=== PATIENT | male | born 1940 | race Caucasian/White ===

== ENCOUNTER → 2016-09-15 | Outpatient (CLI) | payer MEDICARE, BC ==
--- NOTE | 2016-09-15 09:39 | US ---
EXAMINATION TYPE: US renals and bladder DATE OF EXAM: 09/15/2016 9:05 AM COMPARISON: See PACS CLINICAL HISTORY: R31.0 gross hematuria. EXAM MEASUREMENTS: Right Kidney: 10.0 x 4.1 x 4.4 cm Left Kidney: 9.7 x 4.3 x 4.3 cm Right Kidney: wnl Left Kidney: Extensive overlying bowel gas on left, left kidney not seen in its entirety Bladder:solid appearing area in lower bladder measuring 3.4 x 1.9 x 3.7, this area does not appear va scular, bladder wall appears thickened at 1cm Bilateral Jets visualized, they do appear to be sitting on a thickened wall area There is a bladder wall mass and thickening of the bladder. There is a small, 8.3 mm hypoechoic lesio n within the upper pole of the right kidney that does not meet the requirements of a simple cyst. IMPRESSION: 2. A 0.3 MM HYPOECHOIC LESION WITHIN THE UPPER POLE OF THE RIGHT KIDNEY DOES NOT MEET THE REQUIREMENT S OF A SIMPLE CYST.1. THICKENED BLADDER WALL AND BLADDER WALL MASS. DIRECT VISUALIZATION IS SUGGESTED .
== END | disposition home or self-care (01) ==
LOC: RADUSMAIN 08:09
PROVIDERS: ATTEND Physician Assistant
DX: N28.89 Other specified disorders of kidney and ureter (principal); N32.89 Other specified disorders of bladder; R31.0 Gross hematuria
CPT/HCPCS: 76770

== ENCOUNTER 2020-09-11 06:14 | Day surgery (SDC) | payer MEDICARE, BC ==
[2020-09-10 09:00] VITALS: BMI 25.0
[2020-09-11] MEDS ORDERED: NITROGLYCERIN SL TABS 0.4 MG TAB SUBLINGUAL PRN (06:33)
[2020-09-11] MEDS ORDERED: SODIUM CHLORIDE 0.9% 1,000 ML in EMPTY BAG 1 BAG IV ONE (06:33)
[2020-09-11] MEDS ORDERED: ALPRAZolam 0.25 MG TAB PO PRN (06:33)
[2020-09-11] MEDS ORDERED: ASPIRIN 325 MG TAB PO STA (06:33)
[2020-09-11] MEDS ORDERED: HEPARIN SODIUM,PORCINE 10,000 UNIT in SODIUM CHLORIDE 0.9% 1,000 ML IRRIGATION PRN (06:33)
[2020-09-11] MEDS ORDERED: ALPRAZolam 0.5 MG TAB PO PRN (06:33)
[2020-09-11] MEDS ORDERED: HEPARIN SODIUM,PORCINE 2,500 UNIT in SODIUM CHLORIDE 0.9% 250 ML IRRIGATION PRN (06:33)
[2020-09-11] MEDS ORDERED: SODIUM CHLORIDE 0.9% 1,000 ML IV ONE (06:45)
[2020-09-11] MEDS ORDERED: VERAPAMIL 2.5 MG/ML 2 ML AMP ONE (07:11)
[2020-09-11] MEDS ORDERED: LIDOCAINE 1% INJ 10MG/ML (20 ML MDV) ONE (07:11)
[2020-09-11 07:12] VITALS: RESP 16; TEMP 97.6
[2020-09-11 07:14] LABS: Glucose,Whole Blood 133 mg/dL (75-99)
[2020-09-11 07:26] LABS: Calcium 9.8 mg/dL (8.4-10.2); Potassium 4.2 mmol/L (3.5-5.1)
[2020-09-11] MEDS ORDERED: fentaNYL (PF) 50 MCG/ML 2 ML AMP ONE (07:26)
[2020-09-11] MEDS ORDERED: HEPARIN SODIUM 1,000 UN/ML (10ML VL) ONE (07:26)
[2020-09-11] MEDS ORDERED: fentaNYL (PF) 50 MCG/ML 2 ML AMP IV ONE (07:33)
[2020-09-11] MEDS: LIDOCAINE 1% INJ 10MG/ML (20 ML MDV) SQ ONE ×2 (07:38→07:53)
[2020-09-11] MEDS: VERAPAMIL SYRINGE (5 MG/10 ML) INTRAARTER ONE ×2 (07:39→07:47)
[2020-09-11 07:41] LABS: Basophils # (A) 0.1 k/uL (0-0.2); Basophils % (A) 0 %; Eosinophils # (A) 0.1 k/uL (0-0.7); Eosinophils % (A) 1 %; HCT 51.4 % (39.0-53.0); HGB 17.2 gm/dL (13.0-17.5); Lymphocytes # (A) 1.4 k/uL (1.0-4.8); Lymphocytes % (A) 11 %; MCH 30.4 pg (25.0-35.0); MCHC 33.4 g/dL (31.0-37.0); MCV 91.1 fL (80.0-100.0); Mean Platelet Volume 8.5; Monocytes # (A) 0.7 k/uL (0-1.0); Monocytes % (A) 5 %; Neutrophils # (A) 10.7 k/uL (1.3-7.7); Neutrophils % (A) 82 %; Platelet Count 165 k/uL (150-450); RBC 5.64 m/uL (4.30-5.90); RDW 12.9 % (11.5-15.5); WBC 13.1 k/uL (3.8-10.6)
[2020-09-11] MEDS: MIDAZOLAM 2 MG/2 ML VIAL IVP ONE ×2 (07:45→07:49)
[2020-09-11] MEDS ORDERED: IOPAMIDOL-370 50ML BTL INJ ONE (08:09)
[2020-09-11] MEDS ORDERED: IOPAMIDOL-370 125ML BTL INJ ONE (08:09)
[2020-09-11] MEDS ORDERED: RX INFO: IV CONTRAST WAS GIVEN 1 EACH MISC MISCELLANE PRN (08:29)
[2020-09-11] MEDS ORDERED: SODIUM CHLORIDE 0.9% 1,000 ML IV SCH (08:30)
[2020-09-11] MEDS ORDERED: ATORVASTATIN 20 MG TAB PO SCH (09:00)
[2020-09-11] MEDS ORDERED: lisinopriL 10 MG TAB PO SCH (09:00)
[2020-09-11] MEDS ORDERED: METOPROLOL TARTRATE 25 MG TAB PO SCH (09:00)
[2020-09-11] MEDS ORDERED: amLODIPine 10 MG TAB PO SCH (09:00)
--- NOTE | 2020-09-11 09:01 | CC ---
CARDIAC CATHETERIZATION REPORT Mr. Cazares is an 79-year-old male with a known history of hypertension, hyperlipidemia, diabetes mellitus as well as aortic regurgitation, who recently underwent a myocardial perfusion imaging that revealed evidence of inferior and inferolateral wall partially reversible defect. In view of that, recommendations were made regarding cardiac catheterization. The procedure as well as the risks and the complications were discussed with the patient who is in full understanding and agreement. PROCEDURE: Patient was brought to [facility] in a fasting semi-sedated state after receiving fentanyl and Benadryl and achieving moderate conscious sedated state. Using Xylocaine anesthesia and Seldinger technique, a 6-Peruvian sheath was introduced in the right radial artery. Multiple attempts to advanced a wire into the ascending aorta were unsuccessful because of severe vasospasm. At that time, the wire was removed and using Xylocaine anesthesia and Seldinger technique, a 6-Peruvian sheath was introduced in the right femoral artery. Selective right and left coronary angiography performed using 5- Peruvian 4 bend right Senthil and 6-Peruvian 5 bend left Senthil catheter. Multiple views of the coronary artery including hemiaxial views were obtained. Following that, a 6- Peruvian tight pigtail catheter was introduced in the left ventricle and left ventricular end-diastolic pressure was calculated. Following that, a LUXEMBOURGER ascending aortogram was performed. Subsequently, the catheter and sheath were removed. Hemostasis was obtained with deployment of a TR band on the right radial as well as Angio-Seal in the right femoral artery. There was no immediate complication. Patient was returned to his room in stable condition. FINDINGS: LEFT MAIN: This is a short size vessel, bifurcating into left circumflex, left anterior descending artery. Left main coronary artery has no evidence of high-grade stenosis. LEFT ANTERIOR DESCENDING ARTERY: This is a large-size vessel reaching toward the apex with a wraparound apex segment giving rise to one diagonal branch of moderate to large caliber. The left anterior descending artery as well as branches have no evidence of obstructive coronary artery disease. LEFT CIRCUMFLEX: This is a nondominant large vessel giving rise to a large first obtuse marginal branch that has 3 different branches. The left circumflex as well as branches have no evidence of obstructive coronary artery disease. RIGHT CORONARY ARTERY: This is a large dominant vessel bifurcating distally PDA and posterolateral segment and branches. The right coronary artery and its branches have no evidence of obstructive coronary artery disease. LEFT VENTRICULOGRAM: The left ventriculogram was not performed. AORTOGRAM: Aortogram was performed in the LUXEMBOURGER view and revealed the 3 to 4+ aortic regurgitation with dilatation of the ascending aorta measuring 4.9 cm. HEMODYNAMICS: There was no gradient across the aortic valve. The left ventricular end-diastolic pressure was 8-10 mmHg. CONCLUSION: 1. Normal coronary arteries. 2. Dilated ascending aorta with a 3 to 4+ aortic regurgitation. RECOMMENDATION: In view of finding anatomy, I recommend continue medical therapy and close followup of his aortic size to decide about proceeding with surgical repair. Those findings and recommendation were discussed with the patient and his family and they are in full understanding and agreement. Duration of procedure is 38 minutes. MMODL / IJN: [id number] /
--- NOTE | 2020-09-11 09:04 | LTR ---
September 11, 2020 Re: Aries [place] Dear Dr. Moe: I had the opportunity to perform cardiac catheterization on Mr. Cazares at [facility] on the 11 of September and a full copy of the procedure note will be forwarded to you. In brief, he was found to have no evidence of obstructive coronary artery disease with evidence of ascending aortic aneurysm and severe aortic regurgitation. Based on those findings, I will continue medical therapy and follow his aortic size closely to make further recommendation regarding surgical repair. I will keep you updated in his progress and thank you again for allowing me the opportunity to participate in his care. Please feel free to call for any questions. Sincerely yours, MD GEOVANNA Pino / [place]: [id number] /
[2020-09-11 10:20] VITALS: PULSE 60
[2020-09-11 12:51] VITALS: BP 119/72
[2020-09-12] MEDS ORDERED: ASPIRIN 81 MG PO SCH (09:00)
== END 2020-09-11 13:28 | disposition home or self-care (01) ==
LOC: CATHCVL 06:14
PROVIDERS: ATTEND Internal Medicine Interventional Cardiology
DX: I35.1 Nonrheumatic aortic (valve) insufficiency (principal); I71.4 Abdominal aortic aneurysm, without rupture; I77.89 Other specified disorders of arteries and arterioles; R94.39 Abnormal result of other cardiovascular function study; I10 Essential (primary) hypertension; E11.9 Type 2 diabetes mellitus without complications; R09.89 Other specified symptoms and signs involving the circulatory and respiratory systems; E78.2 Mixed hyperlipidemia; Z79.82 Long term (current) use of aspirin; Z79.899 Other long term (current) drug therapy; Z79.84 Long term (current) use of oral hypoglycemic drugs
CPT/HCPCS: 93458; 93567; 80048; 85025; C1760; C1769 ×2; C1894; J2250; J2001; J3010; Q9967 ×2

== ENCOUNTER → 2020-09-24 | Outpatient (CLI) | payer MEDICARE, BC ==
--- NOTE | 2020-09-24 16:09 | CT ---
EXAMINATION TYPE: CT angio chest DATE OF EXAM: 09/24/2020 COMPARISON: None HISTORY: 79-year-old male I71.2, Thoracic aortic aneurysm, without rupture TECHNIQUE: Contiguous axial scanning of the chest performed with IV Contrast, patient injected with 8 0 mL of Isovue 370. Initial noncontrast images through the aortic arch. Coronal/sagittal MIP reconstr uctions performed. 3-D reconstructions generated on a dedicated workstation. CT DLP: 359.4 mGycm Automated exposure control for dose reduction was used. FINDINGS: Heart normal size without pericardial effusion. Scattered LAD and circumflex coronary artery calcific ations are present. Aortic root is aneurysmal at 5.4 cm. Ascending aorta aneurysm 5.3 cm. Proximal arch aneurysmal at 4.8 cm. Conventional branching anatomy. Mild atherosclerotic calcifications within the arch. Ectatic upper descending thoracic aorta 3.5 cm. Borderline ectatic 3.0 cm mid descending thoracic aorta. Ectatic lower descending thoracic aorta 2.8 cm. Noncontrast images show no evidence for acute intramural hematoma. Enlarged caliber to the main right and left pulmonary arteries at 3.1 and 2.8 cm, respectively, sugge sting underlying pulmonary hypertension. No thoracic lymphadenopathy. 3 mm peripheral right midlung pulmonary nodule, axial image 28. Larger 1 cm right middle lobe pulmonary nodule, axial image 35. 3 mm anterior right middle lobe pulmonary nodule, axial image 39. 3 mm posterior left lower lobe pulmonary nodule, axial image 38. A few scattered benign calcified granulomas are noted particularly in the right lower lung. No consolidation or pleural effusion. Moderate fold thickening within the visualized gastric body, axial image 57, could be due to nondiste ntion. Correlate for possible gastritis or any symptoms that would warrant direct visualization to ex clude underlying neoplasm. Bones: Moderate multilevel degenerative disc disease mid to lower thoracic spine. IMPRESSION: 1. ANEURYSMAL THORACIC AORTA (ROOT 5.4 CM, ASCENDING 5.3 CM, PROXIMAL ARCH 4.8 CM, UPPER DESCENDING 3 .5 CM). 2. FINDINGS SUGGEST UNDERLYING PULMONARY ARTERIAL HYPERTENSION. 3. SCATTERED PULMONARY NODULES, LARGEST IN THE RIGHT MIDDLE LOBE MEASURES 1 CM. THREE-MONTH FOLLOW-UP CT RECOMMENDED TO EXCLUDE EARLY NEOPLASM. 4. MODERATE FOLD THICKENING IN THE VISUALIZED GASTRIC BODY. THIS APPEARANCE COULD BE FROM UNDERDISTE NTION OR GASTRITIS. CORRELATE FOR ANY SYMPTOMS THAT WOULD WARRANT DIRECT VISUALIZATION TO EXCLUDE CLEM PLASM.
== END | disposition home or self-care (01) ==
LOC: RADCTMAIN 13:41
PROVIDERS: ATTEND Internal Medicine Interventional Cardiology
DX: R91.8 Other nonspecific abnormal finding of lung field (principal); I71.2 Thoracic aortic aneurysm, without rupture
CPT/HCPCS: 82565; 84520; 71275; 36415; Q9967

== ENCOUNTER → 2021-03-31 | Outpatient (CLI) | payer MEDICARE, BC ==
--- NOTE | 2021-04-01 11:50 | CT ---
CT CHEST FOR PULMONARY EMBOLISM. EXAMINATION TYPE: CT angio chest DATE OF EXAM: 03/31/2021 INDICATION: Thoracic aortic aneurysm w/out rupture. Pt not reporting any issues CT DLP: 566.80 mGycm, Automated exposure control for dose reduction was used. CONTRAST: Patient injected with 80 mL of Isovue 370. COMPARISON: TECHNIQUE: CT of the chest is performed on a spiral scan at 2 mm thick sections. Study is performed with intravenous contrast timed for evaluation for the aorta. This will limit additional portions of the evaluation. 3-D MIP images reconstructed by the technologist are reviewed on the computer in th e coronal and sagittal planes. FINDINGS: No dissection is evident. No mediastinal or hilar adenopathy enlarged by CT criteria is evident. The ascending aorta diameter at the level of the main pulmonary artery is 5.3 cm. The main pulmonary artery diameter at the bifur cation is 2.7 cm. The aortic root measures 5.4 cm. The descending thoracic aorta at the level of the main pulmonary art lucy is 5.3 cm which is stable from comparison. The aortic arch has a transverse dimension of 3.1 cm. Distal thoracic aorta above the diaphragm measures 2.9 cm. There is a calcified granuloma within the periphery of the right mid lung, series 5 image 270. Additi onal calcification within the right middle lobe, series 5 image 34. There is a tiny peripheral nodule in the left lower lobe with a 0.2 cm. Series [address] section through the upper abdomen are unremarkable. IMPRESSIONS: 1. Ascending thoracic aortic aneurysm, stable from 09/24/2020. 2. Calcified granuloma within the right lung discussed above. Tiny nodular density may be within the periphery of the left lung may been present previously.
== END | disposition home or self-care (01) ==
LOC: RADCTMAIN 15:48
PROVIDERS: ATTEND Surgery
DX: I71.2 Thoracic aortic aneurysm, without rupture (principal); J84.10 Pulmonary fibrosis, unspecified
CPT/HCPCS: 82565; 84520; 71275; 36415; Q9967

== ENCOUNTER → 2022-04-06 | Outpatient (CLI) | payer MEDICARE, BC | END | disposition home or self-care (01) | LOC: RADCTMAIN 14:00 | PROVIDERS: ATTEND Surgery | DX: I71.20 Thoracic aortic aneurysm, without rupture, unspecified (principal) | CPT/HCPCS: 82565; 84520 ==

== ENCOUNTER → 2022-10-31 | Outpatient (CLI) | payer MEDICARE, BC ==
--- NOTE | 2022-10-31 12:01 | CT ---
EXAMINATION TYPE: CT chest wo con DATE OF EXAM: 10/31/2022 COMPARISON: 04/21/2022 HISTORY: thoracic aneurysm CT DLP: 444 mGycm. Automated Exposure Control for Dose Reduction was Utilized. TECHNIQUE: CT scan of the thorax is performed without IV contrast. FINDINGS: LUNGS: The lungs are grossly clear, there is no concerning parenchymal consolidative pneumonia multip le calcified pulmonary nodules again seen compatible with chronic granulomatous benign disease. There is a 2 mm subpleural nodule axial image 14. There are additional sub-5 mm noncalcified nodules in th e superior segment left lower lobe and within the left upper lobe. Right upper lobe interlobular septal thickening at the lung bases suggestive of chronic interstitial pulmonary fibrosis. Subsegmental changes at the right lung base are noted. There is atherosclerotic change aorta and there is an aneurysm involving the ascending aorta measurin g 5.4 x 5.6 cm standing from the aortic root to the aortic arch There is dense coronary artery calcification and cardiomegaly. Structures of the upper abdomen demonstrate punctate nonobstructing right renal calculus partially in cluded in the field of view measuring 5 mm. Calcification near the pancreatic bed noted. Stomach is d ecompressed. Bowel gas pattern nonspecific. There is hypertrophic and degenerative changes in the spi ne. Small hiatal hernia is seen. Assessment for adenopathy limited by noncontrast technique. No pathologic adenopathy identified. Iden tified. There is no pleural effusion or pneumothorax seen. The tracheobronchial tree is patent. IMPRESSION: 1. There is a 5.4 x 5.7 cm ascending thoracic aortic aneurysm extending from the aortic root to the a ortic arch. 2. Dense coronary artery calcification. 3. Multiple calcified and noncalcified nodules similar to prior exam and a benign appearance. Annual 12 month follow-up be obtained to confirm stability. 4. Nonobstructing right renal calculus. 5. Nonspecific calcifications near the pancreatic head. Possibly related to chronic pancreatitis. Man enrique stone is in the differential diagnosis. Correlate with ultrasound.
== END | disposition home or self-care (01) ==
LOC: RADCTMAIN 10:57
PROVIDERS: ATTEND Surgery
DX: I71.20 Thoracic aortic aneurysm, without rupture, unspecified (principal); I25.10 Atherosclerotic heart disease of native coronary artery without angina pectoris; R91.8 Other nonspecific abnormal finding of lung field; N20.0 Calculus of kidney
CPT/HCPCS: 71250

== ENCOUNTER → 2023-04-24 | Outpatient (CLI) | payer MEDICARE, BC ==
--- NOTE | 2023-04-24 13:36 | CT ---
EXAMINATION TYPE: CT chest wo con CT DLP: 449 mGycm, Automated exposure control for dose reduction was used. DATE OF EXAM: 04/24/2023 12:54 PM COMPARISON: 10/31/2022 and dating back to 09/24/2020. CLINICAL INDICATION:Male, 82 years old with history of I71.20 thoracic aneurysm; [facility], THORACIC ANEURY SM TECHNIQUE: Multiple axial images were obtained through the chest. Sagittal and coronal reformats were created for review. Contrast used: mL of (None if empty) Oral contrast used: (None if empty) FINDINGS: LUNGS/ PLEURA: No focal consolidation, pneumothorax or pleural effusion. Left anterior upper lobe anand cified neuroma. No new or enlarging pulmonary nodules. AIRWAY: Patent and unremarkable. HEART: There is mildly enlarged for size with coronary artery atherosclerosis. MEDIASTINUM: No gross evidence of adenopathy. VASCULATURE: Ascending aortic aneurysm measuring up to to 5.4 x 5.4 cm not significantly changed from prior. MUSCULOSKELETAL: Moderate disc degeneration changes are present throughout the thoracolumbar spine. SOFT TISSUES/LYMPH NODES: Unremarkable. LOWER NECK: No significant findings. UPPER ABDOMEN: Few scattered desiccation seen in the pancreatic parenchyma. These are felt to be outs steven the hepatic duct or main common bile duct. IMPRESSION: 1. Ascending thoracic aorta aneurysm measuring up to 5.4 cm not significantly changed dating back to 09/24/2020. 2. Sequela of granulomatous disease with scattered calcified granulomas throughout the lungs. 3. Moderate coronary artery atherosclerosis. 4. Mild cardiomegaly.
== END | disposition home or self-care (01) ==
LOC: RADCTMAIN 12:35
PROVIDERS: ATTEND Thoracic Surgery (Cardiothoracic Vascular Surgery)
DX: I71.21 Aneurysm of the ascending aorta, without rupture (principal); I25.10 Atherosclerotic heart disease of native coronary artery without angina pectoris; I51.7 Cardiomegaly; L92.9 Granulomatous disorder of the skin and subcutaneous tissue, unspecified
CPT/HCPCS: 71250

== ENCOUNTER 2023-10-26 10:19 | Emergency (ER) | payer MEDICARE, BC ==
[2023-10-26 10:41] VITALS: PULSE 77
--- NOTE | 2023-10-26 11:22 | ED ---
General Adult HPI - General Chief complaint: Fall Stated complaint: Fall/R Side Pain Time Seen by Provider: 10/26/23 10:26 Source: patient Mode of arrival: ambulatory Limitations: no limitations - History of Present Illness Initial comments: 83-year-old male presents to the emergency department for evaluation of right sided rib pain. Patient states that he took a fall yesterday when he was walking in the dark. He notes that he hit the right side of his chest wall on the table. He reports the pain is worse with laying down and inspiration. He denies any other injury. Denies head injury, loss of consciousness, blood thinners. - Related Data Home Medications Medication Instructions Recorded Confirmed Aspirin [Adult Low Dose Aspirin EC] 81 mg PO DAILY 07/28/15 10/26/23 Simvastatin 40 mg PO HS 07/28/15 10/26/23 lisinopriL [Zestril] 10 mg PO DAILY 07/28/15 10/26/23 amLODIPine [Norvasc] 10 mg PO DAILY 09/10/20 10/26/23 Dapagliflozin Propanediol [Farxiga] 10 mg PO DAILY 10/26/23 10/26/23 Empagliflozin [Jardiance] 25 mg PO DAILY 10/26/23 10/26/23 Repaglinide [Prandin] 1 mg PO AC-BID 10/26/23 10/26/23 Allergies Allergy/AdvReac Type Severity Reaction Status Date / Time No Known Allergies Allergy Verified 10/26/23 11:12 Review of Systems ROS Statement: Those systems with pertinent positive or pertinent negative responses have been documented in the HPI. ROS Other: All systems not noted in ROS Statement are negative. Past Medical History Past Medical History: Cancer, Diabetes Mellitus, Hyperlipidemia, Hypertension Additional Past Medical History / Comment(s): heart murmur, prostate CA, radiation 2012 History of Any Multi-Drug Resistant Organisms: None Reported Past Surgical History: Orthopedic Surgery Additional Past Surgical History / Comment(s): colonoscopy, knee sx as teen, elvis cataract Past Anesthesia/Blood Transfusion Reactions: No Reported Reaction Past Psychological History: No Psychological Hx Reported Smoking Status: Never smoker Past Alcohol Use History: None Reported Past Drug Use History: None Reported General Exam Limitations: no limitations General appearance: alert, in no apparent distress Head exam: Present: atraumatic, normocephalic, normal inspection Eye exam: Present: normal appearance, PERRL, EOMI. Absent: scleral icterus, conjunctival injection, periorbital swelling ENT exam: Present: normal exam, mucous membranes moist Neck exam: Present: normal inspection. Absent: tenderness, meningismus, lymphadenopathy Respiratory exam: Present: normal lung sounds bilaterally, chest wall tenderness. Absent: respiratory distress, wheezes, rales, rhonchi, stridor Cardiovascular Exam: Present: regular rate, normal rhythm, normal heart sounds. Absent: systolic murmur, diastolic murmur, rubs, gallop, clicks GI/Abdominal exam: Present: soft, normal bowel sounds. Absent: distended, tenderness, guarding, rebound, rigid Extremities exam: Present: normal inspection, full ROM, normal capillary refill. Absent: tenderness, pedal edema, joint swelling, calf tenderness Back exam: Present: normal inspection Neurological exam: Present: alert, oriented X3, CN II-XII intact Psychiatric exam: Present: normal affect, normal mood Skin exam: Present: warm, dry, intact, normal color. Absent: rash Course Vital Signs 10/26/23 10/26/23 10:22 12:58 Temperature 98 F 97.7 F Pulse Rate 77 77 Respiratory 16 18 Rate Blood Pressure 142/79 130/97 O2 Sat by Pulse 96 94 L Oximetry Medical Decision Making - Medical Decision Making Was pt. sent in by a medical professional or institution (DUNG Ann, FORMING YARDAGE CONTROL OPERATOR, urgent care, hospital, or skilled nursing...) When possible be specific @ -No Did you speak to anyone other than the patient for history (EMS, parent, family, police, friend...)? What history was obtained from this source @ -No Did you review nursing and triage notes (agree or disagree)? Why? @ -I reviewed and agree with nursing and triage notes Were old charts reviewed (outside hosp., previous admission, EMS record, old EKG, old radiological studies, urgent care reports/EKG's, skilled nursing records)? Report findings @ -No old charts were reviewed Differential Diagnosis (chest pain, altered mental status, abdominal pain women, abdominal pain men, vaginal bleeding, weakness, fever, dyspnea, syncope, head ache, dizziness, GI bleed, back pain, seizure, CVA, palpatations, mental health, musculoskeletal)? @ -Differential Musculoskeletal Muscular strain, contusion, ligament sprain, fracture, arthritis, septic arthritis, bursitis, cellulitis, muscle spasm, nerve compression, DVT, arterial occlusion, herpes zoster, electrolyte abnormality, tumor.... This is not meant to be in all inclusive list EKG interpreted by me (3pts min.). @ -None X-rays interpreted by me (1pt min.). @ -X-ray of the right-sided ribs shows no evidence of acute fracture CT interpreted by me (1pt min.). @ -CT of the chest shows no evidence of acute rib fracture U/S interpreted by me (1pt. min.). @ -None done What testing was considered but not performed or refused? (CT, X-rays, U/S, labs)? Why? @ -None What meds were considered but not given or refused? Why? @ -None Did you discuss the management of the patient with other professionals (professionals i.e. , PA, FORMING YARDAGE CONTROL OPERATOR, lab, RT, psych nurse, child protective services social worker, research chef, te acher, protective services officer, case reviewer)? Give summary @ -No Was smoking cessation discussed for >3mins.? @ -No Was critical care preformed (if so, how long)? @ -No Were there social determinants of health that impacted care today? How? (Homelessness, low income, unemployed, alcoholism, drug addiction, transportation, low edu. Level, literacy, decrease access to med. care, [facility], rehab)? @ -No Was there de-escalation of care discussed even if they declined (Discuss DNR or withdrawal of care, Hospice)? DNR status @ -No What co-morbidities impacted this encounter? (DM, HTN, Smoking, COPD, CAD, C ancer, CVA, ARF, Chemo, Hep., AIDS, mental health diagnosis, sleep apnea, morbid obesity)? @ -None Was patient admitted / discharged? Hospital course, mention meds given and route, prescriptions, significant lab abnormalities, going to OR and other pertinent info. @ -Discharge. Patient presented to the emergency department for evaluation of right-sided chest wall pain following a fall. He states that he hit his side on the table. Patient underwent x-rays which showed no evidence of acute fracture. Higher suspicion for rib fracture so patient underwent CT scan which showed no evidence of acute fracture. Patient provided an incentive spirometer for at home and advised on use. Discussed symptomatic treatment otherwise at this time. Patient understanding agreeable plan. Patient stable at time of discharge. Case discussed with Dr. Abernathy Undiagnosed new problem with uncertain prognosis? @ -No Drug Therapy requiring intensive monitoring for toxicity (Heparin, Nitro, Insulin, Cardizem)? @ -No Were any procedures done? @ -No Diagnosis/symptom? @ -Chest wall contusion Acute, or Chronic, or Acute on Chronic? @ -acute Uncomplicated (without systemic symptoms) or Complicated (systemic symptoms)? @ -uncomplicated Side effects of treatment? @ -No Exacerbation, Progression, or Severe Exacerbation? @ -No Poses a threat to life or bodily function? How? (Chest pain, [place], MA, pneumonia, PE, COPD, DKA, ARF, appy, cholecystitis, CVA, Diverticulitis, Homicidal, Suicidal, threat to staff... and all critical care pts) @ -No Disposition Clinical Impression: Fall, Chest wall contusion Disposition: HOME SELF-CARE Condition: Stable Instructions (If sedation given, give patient instructions): How to Use an Incentive Spirometer (ED), Fall Prevention (ED) Additional Instructions: Please utilize your incentive spirometer. Follow up with your primary care provider. Return to the emergency department for new or worsening symptoms. Is patient prescribed a controlled substance at d/c from ED?: No Referrals: Cony Moe MD [Primary Care Provider] - 1-2 days
--- NOTE | 2023-10-26 11:32 | XR ---
EXAMINATION TYPE: XR ribs RT w pa chest xray DATE OF EXAM: 10/26/2023 11:12 AM CLINICAL INDICATION:Male, 83 years old with history of fall; [facility] COMPARISON: None TECHNIQUE: XR ribs RT w pa chest xray; Frontal and oblique views of the ribs with frontal chest radio graph. FINDINGS: No definitive displaced acute rib fracture visualized. No evidence of fracture. Overall, th e lungs are clear. The cardiac silhouette is normal in size. The remaining osseous structures are i ntact. Moderate to severe multilevel degeneration changes of the spine. Moderate osteophyte formation of the right glenoid. IMPRESSION: No acute osseous pathology.
--- NOTE | 2023-10-26 12:52 | CT ---
EXAMINATION TYPE: CT chest wo con DATE OF EXAM: 10/26/2023 COMPARISON: 04/24/2023 HISTORY: right lower rib pain from fall CT DLP: 312.8 mGycm. Automated Exposure Control for Dose Reduction was Utilized. TECHNIQUE: CT scan of the thorax is performed without IV contrast. FINDINGS: There are 2 small stable right lung nodules. No new or suspicious lung nodule is seen. There is no abnormal airspace last consolidated density or abnormal interstitial density with the exc eption of some mild bandlike density in the right lung base posteriorly most likely reflecting mild a telectasis. There is no rib fracture. There is a stable sclerotic density in T11. There is a stable 5.4 cm aneurysm of the ascending thoracic aorta. There is no mediastinal, hilar or axillary adenopathy. There is no pleural effusion or pneumothorax. IMPRESSION: 1. No evidence of rib fracture. 2. Mild right lower lobe atelectasis. 3. Stable 5.4 cm aneurysmal dilatation of the ascending thoracic aorta. 4. Stable small right-sided pulmonary nodules. 5. Stable sclerotic density in T11.
[2023-10-26 13:39] VITALS: BP 130/97; RESP 18; TEMP 97.7
== END 2023-10-26 13:03 | disposition home or self-care (01) ==
LOC: EC 10:19
DX: S20.219A Contusion of unspecified front wall of thorax, initial encounter (principal); W22.03XA Walked into furniture, initial encounter
CPT/HCPCS: 71250; 99284

== ENCOUNTER → 2023-11-02 | Outpatient (CLI) | payer MEDICARE, BC ==
[2023-11-02 10:44] LABS: African American GFR (CKD) 50 (>60 ml/min/1.73 sqM); Blood Urea Nitrogen 31 mg/dL (9-20); Non-African American GFR(CKD) 43 (>60 ml/min/1.73 sqM)
--- NOTE | 2023-11-02 11:57 | CT ---
EXAMINATION TYPE: CT chest w con DATE OF EXAM: 11/02/2023 COMPARISON: 10/26/2023 HISTORY: thoracic aortic aneurysm w/o rupture CT DLP: 569 mGycm. Automated Exposure Control for Dose Reduction was Utilized. CONTRAST: CTA scan of the thorax is performed with IV Contrast, patient injected with 100 mL of Isovue 300, pul monary embolism protocol. MIP Images are created on CT scanner and reviewed. FINDINGS: LUNGS: Stable scattered calcified and noncalcified pulmonary nodules. Basilar atelectasis and small effusion. There is no pneumothorax seen. The tracheobronchial tree is patent. MEDIASTINUM: Ascending thoracic aorta is aneurysmal at 5.5 cm AP dimension versus prior measurement o f 5.4 cm. No complicating factors are seen. There are no greater than 1 cm hilar or mediastinal lymph nodes. No cardiomegaly or pericardial effusion is seen. OTHER: No additional significant abnormality is seen. IMPRESSION: 1. Ascending aortic aneurysm as noted. 2. Scattered calcified and noncalcified pulmonary nodules.
== END | disposition home or self-care (01) ==
LOC: RADCTMAIN 09:56
PROVIDERS: ATTEND Surgery
DX: I71.21 Aneurysm of the ascending aorta, without rupture (principal); R91.8 Other nonspecific abnormal finding of lung field
CPT/HCPCS: 82565; 84520; 71260; 36415; Q9967

== ENCOUNTER → 2024-05-22 | Outpatient (CLI) | payer MEDICARE, BC | END | disposition home or self-care (01) | LOC: LABWHC1 08:18 | PROVIDERS: ATTEND Urology | DX: C61 Malignant neoplasm of prostate (principal) | CPT/HCPCS: 36415; 84153 ==

== ENCOUNTER → 2024-10-22 | Outpatient (CLI) | payer MEDICARE, BC ==
--- NOTE | 2024-10-22 10:14 | CT ---
EXAMINATION TYPE: CT chest wo con DATE OF EXAM: 10/22/2024 8:57 AM COMPARISON: 11/02/2023 CLINICAL INDICATION: Male, 84 years old with history of I71.20 THORACIC AORTIC ANEURYSM, WITHOUT RUPT URE; PHH, Thoracic aortic aneurysm w/o rupture TECHNIQUE: CT of the chest without IV contrast. Coronal and sagittal reconstructions performed. Axial MIP reconstruction generated as well. CT DLP: 432 mGycm, Automated exposure control for dose reduction was used. FINDINGS: Heart normal size without pericardial effusion. Three-vessel coronary calcifications are present and are unremarkable for coronary artery disease. Mild aortic valve calcifications. Stable aneurysm aortic root at 5.5 cm. Aneurysm ascending aorta 5.7 cm versus 5.5 cm, previously. The proximal arch is aneurysmal at 5.1 cm, unchanged. Mild atherosclerotic arch calcifications with conventional arch vessel branching anatomy. Possible mo derate atherosclerotic narrowing at the origin of the right subclavian artery. Ectatic upper descending thoracic aorta at 3.4 cm. Tortuous descending thoracic aorta. Stable mild aneurysm of the aorta at the thoracoabdominal junction at 3.3 cm. Mildly enlarged caliber main right and left pulmonary arteries up to 2.9 cm suggesting underlying pul monary hypertension. A few scattered benign calcified granulomas in the lungs. Mild emphysematous change. A few scattered noncalcified nodules measuring up to 5 mm remain unchanged. Straightening atelectasis posterior right lung base. No consolidation or pleural effusion. Visualized upper abdomen shows similar pancreatic head calcifications, possible sequela of chronic pa ncreatitis. There is mild to moderate stool burden. 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 IMPRESSION: 1. Aneurysmal thoracic aorta (root stable at 5.5 cm and ascending portion minimally increased to 5.7 cm versus 5.5 cm, previously. Proximal arch 5.1 cm and at the thoracoabdominal junction 3.3 cm, both also stable). 2. Three-vessel coronary artery calcifications. COPD with mild emphysema, pulmonary arterial hyperten chani, and evidence of prior granulomatous disease. 3. Some of the small noncalcified nodules remain unchanged suggesting a benign etiology. [facility], , 10/22/2024 10:11 AM
== END | disposition home or self-care (01) ==
LOC: RADCTMAIN 08:20
PROVIDERS: ATTEND Surgery
DX: I71.21 Aneurysm of the ascending aorta, without rupture (principal); I25.10 Atherosclerotic heart disease of native coronary artery without angina pectoris; J44.9 Chronic obstructive pulmonary disease, unspecified; I27.21 Secondary pulmonary arterial hypertension; J43.9 Emphysema, unspecified; R91.8 Other nonspecific abnormal finding of lung field
CPT/HCPCS: 71250